=== PATIENT | male | born 1995 | race Caucasian/White ===

== ENCOUNTER 2024-06-30 20:22 | Emergency (ER) | payer SELFPAY ==
[2024-06-30 20:26] VITALS: BP 133/87; PULSE 84; RESP 20; TEMP 37.4; O2SAT 100
[2024-06-30 22:00] LABS: Strep Group A RT-PCR DETECTED (Negative)
--- NOTE | 2024-06-30 23:43 | ED.URI ---
HPI - URI/Sore Throat General Chief Complaint: Upper Respiratory Infection Stated Complaint: sore throat Time Seen by Provider: 06/30/24 23:40 Source: patient Mode of arrival: ambulatory Limitations: no limitations History of Present Illness HPI Narrative: 28-year-old otherwise healthy here with the complaints of sore throat for past 4 days. Patient states that he was at his nephew's [employer] where strep infection he thinks he may have it. He denies any fever he is able to swallow fluids without difficulty. elicited complaint: sore throat Onset (ago): day(s) (4) Consistency: constant Severity: moderate Exacerbating factors: nothing Relieving factors: nothing Context: sick contacts Associated symptoms: denies other symptoms Related Data Allergies Allergy/AdvReac Type Severity Reaction Status Date / Time No Known Allergies Allergy Verified 06/30/24 20:23 Review of Systems Review of Systems: All systems reviewed & are unremarkable except as noted in HPI and below Constitutional: Constitutional: Reports no additional constitutional complaints Eyes: Eyes: Reports no additional eye complaints ENT: Reports as per HPI Cardiovascular: Cardiovascular: Reports as per HPI Respiratory: Respiratory: Reports no additional respiratory complaints Gastrointestinal: Gastrointestinal: Reports no additional gastrointestinal complaints Musculoskeletal: Musculoskeletal: Reports no additional musculoskeletal complaints Neurologic: Reports system reviewed and no additional complaints, except as documented Exam Narrative: GENERAL: Well-appearing, well-nourished, and in no acute distress. HEAD: Normocephalic, atraumatic. EYES: PERRLA and EOMI. ENT: Nares clear, no rhinorrhea or epistaxis. Mucous membranes moist. Erythematous enlarged tonsils uvula midline no evidence of abscess NECK: Supple. CHEST: Clear to auscultation. No respiratory distress. HEART: Regular rate and rhythm. No murmur heard. Normal peripheral pulses. EXTREMITIES: Normal range of motion. No edema. SKIN: Warm, dry, no rash. NEURO: No focal deficits. Alert and oriented x3. PSYCH: Normal mood and affect. Course Course Emergency Course: Informed patient about his lab work. Advised him to take antibiotic and steroids as prescribed Vital Signs Vital signs: Vital Signs Temperature 37.4 C 06/30/24 20:26 Pulse Rate 84 06/30/24 20:26 Respiratory Rate 20 06/30/24 20:26 Blood Pressure 133/87 06/30/24 20:26 Pulse Oximetry 100 06/30/24 20:26 Oxygen Delivery Room Air 06/30/24 20:26 Temperature 37.4 C 06/30/24 20:26 Pulse Rate 84 06/30/24 20:26 Respiratory Rate 20 06/30/24 20:26 Blood Pressure 133/87 06/30/24 20:26 Pulse Oximetry 100 06/30/24 20:26 Oxygen Delivery Room Air 06/30/24 20:26 MDM - URI/Sore Throat Lab Data Labs: Lab Results 06/30/24 Range/Units 21:23 Group A Strep (PCR) Detected A (Negative) Discharge Plan Discharge Clinical Impression: Strep tonsillitis Patient Disposition: Home Condition: Stable Instructions: Antibiotic Form, Strep Throat (DC) Additional Instructions: Drink more liquids take antibiotic as prescribed Tylenol or ibuprofen for pain. Patient Language: Turkish Prescriptions: New amoxicillin 875 mg tablet 875 mg PO Q12H Qty: 20 0RF prednisone 20 mg tablet 20 mg PO BID 7 Days Qty: 14 0RF Follow-up/Referrals: Aldo Wild DO [Physician] - PHYSICIAN NOT ON STAFF,NONSTAFF [Primary Care Provider] - Time of Disposition: 23:48
[2024-07-01 00:50] VITALS: BP 132/89; PULSE 99; RESP 17; O2SAT 100
== END 2024-07-01 00:50 | disposition home or self-care (01) ==
PROVIDERS: Student in an Organized Health Care Education/Training Program; Emergency Provider Family Medicine
DX: J02.0 Streptococcal pharyngitis (principal)
CPT/HCPCS: 87651; 99283